=== PATIENT | male | born 1990 | race Caucasian/White ===

== ENCOUNTER → 2016-09-23 23:02 | Emergency (ER) | payer SELFPAY ==
[~2016-09-23 23:02] MED LIST: Ketorolac INJ* 60 MG/2 ML VIAL IM ONE
[2016-09-23 23:07] VITALS: BP 156/94
--- NOTE | 2016-09-24 00:23 | ED ---
Upper Extremity Pain - HPI Summary HPI Summary: 26 male presents with complaints of right hand pain that began just prior to arrival after punching campos and cabinets because he was angry. Patient states his is able to move his finger and hand however it hurts. Admits to some swelling and minor cuts on his knuckles. Denies any other injuries or pain. Has not taken any medication prior to arrival. Denies numbness and tingling. - History of Current Complaint Chief Complaint: EDExtremityUpper Stated Complaint: RT HAND INJURY Time Seen by Provider: 09/23/16 23:32 Hx Obtained From: Patient Mechanism Of Injury: Blunt Trauma - punching objects Onset/Duration: Started Minutes Ago, Traumatic, Worse Since Timing: Constant Severity Initially: Moderate Severity Currently: Moderate Pain Location: Hand - right Character: Aching, Throbbing Aggravating Factor(s): Movement Alleviating Factor(s): Rest Associated Signs & Symptoms: Positive: Swelling Related History: Dominant Hand Right - Allergies/Home Medications Allergies/Adverse Reactions: Allergies Allergy/AdvReac Type Severity Reaction Status Date / Time Levofloxacin [From Levaquin] Allergy Hives Verified 09/29/15 17:56 PMH/Surg Hx/FS Hx/Imm Hx Endocrine/Hematology History: Denies: Hx Blood Disorders, Hx Diabetes, Hx Thyroid Disease Cardiovascular History: Reports: Hx Syncope Denies: Hx Congestive Heart Failure, Hx Hypertension Respiratory History: Denies: Hx Asthma, Hx Chronic Bronchitis, Hx Chronic Obstructive Pulmonary Disease (COPD), Hx Cystic Fibrosis, Hx Lung Cancer, Hx Pleural Effusion, Hx Pneumonia, Hx Pulmonary Edema, Hx Pulmonary Embolism, Hx Seasonal Allergies, Hx Sleep Apnea Comment Only: Other Respiratory Problems/Disorders - pulmonary nodules GI History: Denies: Hx Hiatal Hernia, Hx Obstructive Bowel, Hx Ulcer History: Reports: Other Problems/Disorders - difficulty urinating this visit Denies: Hx Kidney Infection, Hx Kidney Stones, Hx Renal Disease Musculoskeletal History: Reports: Hx Back Problems - pain Sensory History: Reports: Hx Hearing Problem - tinnitus Denies: Hx Cataracts, Hx Contacts or Glasses, Hx Eye Injury, Hx Glaucoma, Hx Legally Blind, Hx Vision Problem, Hx Hearing Aid, Other Sensory Impairments Opthamlomology History: Denies: Hx Cataracts, Hx Contacts or Glasses, Hx Eye Injury, Hx Glaucoma, Hx Legally Blind, Hx Vision Problem, Other Sensory Impairments Neurological History: Reports: Hx Headaches Denies: Hx Developmental Delay, Hx Migraine, Hx Seizures, Hx Spinal Cord Injury, Other Neuro Impairments/Disorders Psychiatric History: Reports: Hx Anxiety - low level - Immunization History Date of Tetanus Vaccine: unknown Date of Influenza Vaccine: 2011 Infectious Disease History: No Infectious Disease History: Denies: Hx Clostridium Difficile, Hx Hepatitis, Hx Human Immunodeficiency Virus (HIV), Hx of Known/Suspected MRSA, Hx Shingles, Hx Tuberculosis, Traveled Outside the [place] in Last 30 Days - Family History Known Family History: Positive: None Negative: Cardiac Disease, Diabetes Family History: R & n/C - Social History Alcohol Use: Occasionally Hx Substance Use: No Substance Use Type: Reports: None Hx Tobacco Use: No Smoking Status (MU): Former Smoker Type: Cigarettes Amount Used/How Often: ocassional smoker- when drinking Have You Smoked in the Last Year: Yes Review of Systems Constitutional: Negative Cardiovascular: Negative Respiratory: Negative Gastrointestinal: Negative Positive: Arthralgia, Myalgia, Decreased ROM, Edema - right hand Skin: Negative Neurological: Negative All Other Systems Reviewed And Are Negative: Yes Physical Exam Triage Information Reviewed: Yes Vital Signs On Initial Exam: Initial Vitals Temp Pulse Resp BP Pulse Ox 98.2 F 104 20 156/94 99 09/23/16 23:04 09/23/16 23:04 09/23/16 23:04 09/23/16 23:04 09/23/16 23:04 tachycardia and elevate BP noted. Recommend follow up with PCP. patient was however frustrated just prior to arrival. Vital Signs Reviewed: Yes Appearance: Positive: Well-Appearing, No Pain Distress, Well-Nourished Skin: Positive: Warm, Skin Color Reflects Adequate Perfusion, Dry, Other - 2 minorskin avulsions/scrapes on PIP joints 1 and 2nd digits. Negative: Cold, Cyanosis @, Erythema @ Head/Face: Positive: Normal Head/Face Inspection Eyes: Positive: Normal, Conjunctiva Clear ENT: Positive: Normal ENT inspection, Hearing grossly normal Neck: Positive: Supple, Nontender, No Lymphadenopathy Respiratory/Lung Sounds: Positive: Clear to Auscultation, Breath Sounds Present. Negative: Rales, Rhonchi, Wheezes Cardiovascular: Positive: Normal, RRR, Pulses are Symmetrical in both Upper and Lower Extremities - 2+ radial b/l. Negative: Murmur, Rub Abdomen Description: Positive: Nontender, Soft Bowel Sounds: Positive: Present Musculoskeletal: Positive: Normal, Strength/ROM Intact - strength of right hand diminshed 3/5 due to pain/injury, Pain @ - with movement of right hand and fingers but able, Other - no ecchymosis, edema, crepitus, step-off or obvious deformity noted. 2 skin avulsions, minimal on knuckles noted above. Negative: Limited @, Interruption @, Edema Left, Edema Right Neurological: Positive: Normal, Sensory/Motor Intact - sensation normal and intact, Alert, Oriented to Person Place, Time, CN Intact II-III, Reflexes Intact , Normal Gait Psychiatric: Positive: Normal Diagnostics - Vital Signs Vital Signs Temp Pulse Resp BP Pulse Ox 09/23/16 23:55 98.2 F 104 20 156/94 99 09/23/16 23:04 98.2 F 104 20 156/94 99 - Laboratory Lab Statement: Any lab studies that have been ordered have been reviewed, and results considered in the medical decision making process. - Radiology right hand Xray Interpretation: No Acute Changes Radiology Interpretation Completed By: ED Physician - Dr Shen Course/Dx - Course Course Of Treatment: x-ray of right hand obtained and negative for fracture, given toradol for pain and inflammation. given brace for support. Follow up with PCP. Aware of worsening signs and sympoms. Continue pain management, ice and rest. - Diagnoses Differential Diagnosis/HQI/PQRI: Positive: Contusion, Fracture (Closed), Hematoma, Strain, Sprain Provider Diagnoses: Contusion of right hand, Sprain of right hand Discharge - Discharge Plan Condition: Stable Disposition: HOME Patient Education Materials: Hand Sprain (ED), Contusion in Adults (ED) Referrals: Duke Fernandez MD [Primary Care Provider] - Additional Instructions: Take NSAIDs to help with pain and inflammation such as Advil or Aleve. Rest and ice your hand. Wear brace as needed for support. Follow up with PCP. If symptoms worsen or do not improve please return or seek medical attention promptly.
--- NOTE | 2016-09-24 11:49 | RAD ---
HISTORY: Right hand pain, trauma COMPARISONS: January 25, 2006 VIEWS: 4, Frontal, lateral, and oblique views of the right hand FINDINGS: BONE DENSITY: Normal. BONES: There is no displaced fracture. JOINTS: There is no arthropathy. ALIGNMENT: There is no dislocation. SOFT TISSUES: Unremarkable. OTHER FINDINGS: None. IMPRESSION: NO ACUTE OSSEOUS INJURY. IF SYMPTOMS PERSIST, RECOMMEND REPEAT IMAGING.
== END | disposition home or self-care (01) ==
LOC: ED 23:02
DX: S60.221A Contusion of right hand, initial encounter (principal); S63.91XA Sprain of unspecified part of right wrist and hand, initial encounter; M79.641 Pain in right hand; Z87.891 Personal history of nicotine dependence; W22.01XA Walked into wall, initial encounter; Y93.9 Activity, unspecified; Y92.9 Unspecified place or not applicable
CPT/HCPCS: 96372; 99282; J1885

== ENCOUNTER 2017-01-23 10:31 | Emergency (ER) | payer SELFPAY ==
[2017-01-23 10:40] VITALS: BP 121/63
[2017-01-23] MEDS ORDERED: Tetan/Diph/Pertus SYR(Tdap)* 0.5 ML SYR(BOOSTRIX) use SYR IM ONE (11:37)
--- NOTE | 2017-01-23 12:13 | UC ---
Laceration HPI - HPI Summary HPI Summary: Patient presents with laceration of the right middle finger while at work just prior to arrival. He reports a small "L" shape cut on the end of his finger. Bleeding is controlled, he report full rom and no decreased sensation to touch. He states he does not sense foreign body in the wound. He was removing glass from a broken window when the injury occurred. - History Of Current Complaint Chief Complaint: UCLaceration Stated Complaint: FINGER LAC Time Seen by Provider: 01/23/17 11:34 Hx Obtained From: Patient Laceration Location: Finger Mechanism Of Injury: Sharp Trauma Pain Intensity: 2 Pain Scale Used: 0-10 Numeric Aggravating Factors: Other: - touch - Allergies/Home Medications Allergies/Adverse Reactions: Allergies Allergy/AdvReac Type Severity Reaction Status Date / Time Levofloxacin [From Levaquin] Allergy Hives Verified 01/23/17 10:36 Home Medications: Home Medications NK [No Home Medications Reported] 01/23/17 [History Confirmed 01/23/17] PMH/Surg Hx/FS Hx/Imm Hx Previously Healthy: Yes - Surgical History Surgical History: None - Family History Known Family History: Positive: None Negative: Cardiac Disease, Diabetes Family History: R & n/C - Social History Occupation: Employed Full-time Lives: Alone Alcohol Use: Occasionally Substance Use Type: None Smoking Status (MU): Light Every Day Tobacco Smoker Type: Cigarettes Amount Used/How Often: ocassional smoker- when drinking Have You Smoked in the Last Year: Yes Household Exposure Type: Cigarettes - Immunization History Most Recent Influenza Vaccination: 2011 Most Recent Tetanus Shot: 2009 Most Recent Pneumonia Vaccination: 0 Review of Systems Constitutional: Negative Skin: Other - finger cut All Other Systems Reviewed And Are Negative: Yes Physical Exam Triage Information Reviewed: Yes Appearance: Well-Appearing Vital Signs: Initial Vital Signs Temp 98 F 01/23/17 10:37 Pulse 63 01/23/17 10:37 Resp 16 01/23/17 10:37 BP 121/63 01/23/17 10:37 Pulse Ox 100 01/23/17 10:37 Vital Signs Reviewed: Yes Eye Exam: Normal ENT Exam: Normal Neck exam: Normal Respiratory Exam: Normal Cardiovascular Exam: Normal Abdominal Exam: Normal Skin: Positive: Other - superficial laceration of the tip of the right index finger. measue 0.5 cm in total and is in the shape of a "L". neuro-vasc intact. rom intact. Laceration Repair - Laceration Repair 1 Description: Linear - laceration was glued with adhesive. Laceration Course/Dx - Course/Dx Course Of Treatment: Patient presents with superficial laceration of the right middle finger, which was closed with adhesive. tetanus updated. splint provided. return to work tomorrow. - Differential Dx - Laceration/Wound Differental Diagnoses: Laceration Provider Diagnoses: laceration. adhesive repair. tetanus updated Discharge - Discharge Plan Condition: Stable Disposition: HOME Patient Education Materials: Diphtheria/Acellular Pertussis/Tetanus Vaccine ( By injection), Finger Laceration (ED), Skin Adhesive Care (ED) Forms: *Work Release Referrals: Duke Fernandez MD [Primary Care Provider] -
== END 2017-01-23 12:00 | disposition home or self-care (01) ==
LOC: UCEAST 10:31
DX: S61.212A Laceration without foreign body of right middle finger without damage to nail, initial encounter (principal); W25.XXXA Contact with sharp glass, initial encounter; Y92.9 Unspecified place or not applicable; Z88.1 Allergy status to other antibiotic agents; F17.210 Nicotine dependence, cigarettes, uncomplicated
CPT/HCPCS: 12001; 90471; 90715; 99212; G0463

== ENCOUNTER 2017-02-04 18:09 | Emergency (ER) | payer SELFPAY ==
[2017-02-04 18:28] VITALS: BP 112/70
--- NOTE | 2017-02-04 18:35 | UC ---
Hand/Wrist HPI - HPI Summary HPI Summary: ring finger left hand tip of finger red tender and swollen, patient bits his nails and has had similar in the past - History Of Current Complaint Chief Complaint: UCUpperExtremity Stated Complaint: L FINGER SWOLLEN Time Seen by Provider: 02/04/17 18:30 Hx Obtained From: Patient ?: No Onset/Duration: Gradual Onset, Lasting Days, Still Present Severity Initially: Mild Severity Currently: Moderate Pain Intensity: 6 Pain Scale Used: 0-10 Numeric Character Of Pain: Aching, Throbbing Alleviating Factor(s): Nothing Associated Signs And Symptoms: Positive: Swelling, Redness Related History: Dominant Hand Right - Allergies/Home Medications Allergies/Adverse Reactions: Allergies Allergy/AdvReac Type Severity Reaction Status Date / Time Levofloxacin [From Levaquin] Allergy Hives Verified 02/04/17 18:15 Home Medications: Home Medications Ibuprofen [Ibuprofen 200 MG] 200 mg PO 02/04/17 [History] PMH/Surg Hx/FS Hx/Imm Hx Previously Healthy: Yes - Surgical History Surgical History: None - Family History Known Family History: Positive: None Negative: Cardiac Disease, Diabetes - Social History Occupation: Employed Full-time Lives: With Family Alcohol Use: Occasionally Substance Use Type: None Smoking Status (MU): Light Every Day Tobacco Smoker Type: Cigarettes Amount Used/How Often: 1/2 pack/ day Have You Smoked in the Last Year: Yes Household Exposure Type: Cigarettes Cessation Counseling: Patient Advised to Stop - Immunization History Most Recent Influenza Vaccination: 2011 Most Recent Tetanus Shot: 2009 Most Recent Pneumonia Vaccination: 0 Review of Systems Constitutional: Negative Skin: Other - left 4th finger red, swelling and tender Eyes: Negative ENT: Negative Respiratory: Negative Cardiovascular: Negative Gastrointestinal: Negative Genitourinary: Negative Motor: Negative Neurovascular: Negative Musculoskeletal: Negative Neurological: Negative Psychological: Negative Is Patient Immunocompromised?: No All Other Systems Reviewed And Are Negative: Yes Physical Exam Triage Information Reviewed: Yes Appearance: Well-Appearing, No Pain Distress, Well-Nourished Vital Signs: Initial Vital Signs Temp 98.2 F 02/04/17 18:16 Pulse 71 02/04/17 18:16 Resp 18 02/04/17 18:16 Pulse Ox 97 02/04/17 18:16 Vital Signs Reviewed: Yes Eye Exam: Normal Eyes: Positive: Conjunctiva Clear ENT Exam: Normal ENT: Positive: Normal ENT inspection, Hearing grossly normal. Negative: Nasal congestion, Nasal drainage, Trismus, Muffled/hoarse voice Dental Exam: Normal Neck exam: Normal Neck: Positive: Supple, Nontender, No Lymphadenopathy Respiratory Exam: Normal Respiratory: Positive: Chest non-tender, No respiratory distress, No accessory muscle use Cardiovascular Exam: Normal Cardiovascular: Positive: RRR, Pulses Normal, Brisk Capillary Refill Musculoskeletal Exam: Normal Musculoskeletal: Positive: Strength Intact, ROM Intact, Edema @ - tip of left 4th finger Neurological Exam: Normal Neurological: Positive: Alert Psychological Exam: Normal Skin Exam: Normal - nail of left 4th finger has pain reddness and swelling- tender to touch Skin: Positive: Other Hand/Wrist Course/Dx - Course Course Of Treatment: warm soak , ibuprfen, bactim dx follow with pcp this week - Differential Dx/Diagnosis Differential Diagnosis/HQI/PQRI: Infection, Paronychia Provider Diagnoses: lefth 4th finger paronychia Discharge - Discharge Plan Condition: Stable Disposition: HOME Prescriptions: Ibuprofen TAB* [Motrin TAB* 600 MG] 600 mg PO Q6H PRN #30 tab PRN Reason: pain Sulfamethox/Trimethoprim DS* [Bactrim DS 800/160 TAB*] 1 tab PO BID #19 tab Patient Education Materials: Paronychia (ED), Warm Compress or Soak (ED) Referrals: Duke Fernandez MD [Primary Care Provider] - If Needed
[2017-02-04] MEDS ORDERED: Sulfamethox/Trimethoprim DS 800/160* TAB PO ONE (18:43)
[2017-02-04] MEDS ORDERED: Ibuprofen TAB* 600 MG PO ONE (18:43)
== END 2017-02-04 18:50 | disposition home or self-care (01) ==
LOC: UCEAST 18:09
DX: L03.012 Cellulitis of left finger (principal); Z88.8 Allergy status to other drugs, medicaments and biological substances; F17.210 Nicotine dependence, cigarettes, uncomplicated
CPT/HCPCS: 99212; A9270-GY; G0463

== ENCOUNTER 2017-02-09 13:34 | Emergency (ER) | payer SELFPAY ==
[2017-02-09] MEDS ORDERED: Lidocaine 2% PF * 5 ML VIAL IV ONE (15:43)
[2017-02-09] MEDS ORDERED: Lidocaine 2% PF * 5 ML VIAL INJ ONE (15:45)
--- NOTE | 2017-02-09 16:04 | UC ---
Skin Complaint HPI - HPI Summary HPI Summary: Patient presents with complaints of left ring finger with infection around the nail, onset six days. He was seen and place on Bactrim DS one tablet twice daily , and the day after he started the ABX his finger started to puss up around the nail. He since reports that the swelling, pain, redness and puss have been getting worse each day. He also reports pain with flexion and extension of the finger, and the tip of the finger is now numb. He states he had a finger infection like this before on the other hand. - History of Current Complaint Chief Complaint: UCUpperExtremity Time Seen by Provider: 02/09/17 15:29 Stated Complaint: RED SWOLLEN FINGER TIP Hx Obtained From: Patient Onset/Duration: Gradual Onset, Lasting Days, Still Present Skin Exposure Onset/Duration: Days Ago Timing: Constant Onset Severity: Moderate Current Severity: Severe Location: Discrete, Hand (Left) - distal ring finger Character: Swelling, Pain, Redness, Painful Aggravating Factor(s): Touch, Other - bending. flexion/extension Alleviating Factor(s): Nothing Associated Signs & Symptoms: Positive: Tenderness, Red Streaks, Joint Swelling Similar Episode/Dx as: paronchyia - Allergy/Home Medications Allergies/Adverse Reactions: Allergies Allergy/AdvReac Type Severity Reaction Status Date / Time Levofloxacin [From Levaquin] Allergy Hives Verified 02/09/17 14:43 Review of Systems Constitutional: Negative Skin: Other - left ring finger with infection Eyes: Negative ENT: Negative Respiratory: Negative Cardiovascular: Negative Gastrointestinal: Negative Genitourinary: Negative Motor: Negative Neurovascular: Negative Musculoskeletal: Negative Neurological: Negative Psychological: Negative All Other Systems Reviewed And Are Negative: Yes PMH/Surg Hx/FS Hx/Imm Hx Previously Healthy: Yes - Surgical History Surgical History: None - Family History Known Family History: Positive: None Negative: Cardiac Disease, Diabetes Family History: R & n/C - Social History Occupation: Employed Full-time Lives: Alone Alcohol Use: Occasionally Substance Use Type: None Smoking Status (MU): Light Every Day Tobacco Smoker Type: Cigarettes Amount Used/How Often: 1/2 pack/ day Have You Smoked in the Last Year: Yes Household Exposure Type: Cigarettes - Immunization History Most Recent Influenza Vaccination: 2011 Most Recent Tetanus Shot: 2009 Most Recent Pneumonia Vaccination: 0 Physical Exam Triage Information Reviewed: Yes Appearance: Well-Appearing Vital Signs: Initial Vital Signs Temp 98.2 F 02/09/17 14:44 Pulse 62 02/09/17 14:44 Resp 16 02/09/17 14:44 BP 107/67 02/09/17 14:44 Pulse Ox 100 02/09/17 14:44 Vital Signs Reviewed: Yes Eye Exam: Normal ENT Exam: Normal Neck exam: Normal Respiratory Exam: Normal Cardiovascular Exam: Normal Musculoskeletal Exam: Other - left ring finger inspection; erythma, and soft tissue swellling noted distally extends above the dip joint space. mildly warm to touch, and tenderness on palpation. ROM decreased with flexion and extension of 20 degrees until pain is experienced. Vasc; strong radial and ulnar pulses, capillary refill less that 3 seconds. neuro;without deficits. Skin Exam: Normal Course/Dx - Course Course Of Treatment: Patient presents with paronchyia of the left index finger. With concent and after digital block I+D of the paronchyia was performed. Culture obtained and pending. DR. Marley was called and he can see the patient tomorrow. He was placed on Kefelx 500 mg po qid x 10 days. Pain addressed. Discharged home in stable condition. - Differential Diagnoses - Skin Complaint Differential Diagnoses: Other - paryonchia - Diagnoses Provider Diagnoses: paronchyia Discharge - Discharge Plan Condition: Stable Disposition: HOME Prescriptions: Cephalexin CAP* [Keflex CAP*] 500 mg PO QID #40 cap HYDROcodone/ACETAMIN 5-325 MG* [[place] 5-325 TAB*] 1 tab PO Q8H PRN #6 tab MDD 3 PRN Reason: finger pain Patient Education Materials: Paronychia (ED) Referrals: Duke Fernandez MD [Primary Care Provider] - Humberto Lamb MD [Medical Doctor] - Additional Instructions: I spoke with the doctor and he will see you tomorrow in his office, you will need to call and make your appointment in the morning.
[2017-02-09 16:33] VITALS: BP 151/84
--- NOTE | 2017-02-09 16:49 | RAD ---
Indication: Infection LEFT fourth finger. Comparison: No relevant prior exams available on the [facility] PACS. Technique: 3 views LEFT fourth finger Report: Significant fusiform soft tissue swelling at the level of the distal phalanx. No conspicuous foreign body or subcutaneous emphysema. Normal articular alignment. Negative for fracture, periosteal reaction, osteolysis, or osteosclerosis. IMPRESSION: Distal soft tissue swelling. No radiographic stigmata for osteomyelitis.
== END 2017-02-09 16:30 | disposition home or self-care (01) ==
LOC: UCEAST 13:34
DX: L03.011 Cellulitis of right finger (principal); F17.210 Nicotine dependence, cigarettes, uncomplicated; Z88.1 Allergy status to other antibiotic agents
CPT/HCPCS: 73140; 87070; 87077; 87186; 87205; 87640; 87641; 99212; G0463

== ENCOUNTER 2018-07-19 19:52 | Emergency (ER) | payer SELFPAY ==
[2018-07-19 20:35] VITALS: BP 124/76
[2018-07-19] MEDS ORDERED: Famotidine TAB* 20 MG PO ONE (20:46)
--- NOTE | 2018-07-19 20:46 | UC ---
FLU HPI - HPI Summary HPI Summary: 28 y/o male presents to the urgent care c/o fever, sore throat, RENO, body aches, dry cough since yesterday. Pt reports this morning symptoms worsen w/ fever of 102f. He took Tylenol cold and flu and tem decrease. then he developed fever again. Last dose taken was around 1845pm this afternoon, He feels weak. Pt had the influenza vaccine this season. Pt denies SOB, chest pain, dizziness, abdominal pain, N/V/D. - History of Current Complaint Chief Complaint: UCRespiratory Stated Complaint: FEVER Time Seen by Provider: 07/19/18 20:29 Hx Obtained From: Patient Onset/Duration: Gradual Onset, Lasting Days - 1 day, Still Present, Worse Since - today Severity Currently: Mild Severity Initially: Moderate Pain Intensity: 8 Pain Scale Used: 0-10 Numeric Associated Signs & Symptoms: Positive: Fever, T Max - 102F, Myalgia, Cough - dry , Sore Throat, Nasal Congestion - clear, Headache - Risk Factors Influenza Risk Factors: Negative - Allergy/Home Medications Allergies/Adverse Reactions: Allergies Allergy/AdvReac Type Severity Reaction Status Date / Time levofloxacin [From Levaquin] Allergy Hives/Diff. Verified 07/19/18 20:35 Breathing/I tching Home Medications: Home Medications Phenylephrine/Dm/Acetaminop/GG [Tylenol Cold-Flu Severe Caplet] 1 each PO Q6H [History Confirmed 07/19/18] PMH/Surg Hx/FS Hx/Imm Hx Previously Healthy: Yes - Pt denies PMHX - Surgical History Surgical History: None - Family History Known Family History: Positive: None Negative: Cardiac Disease, Diabetes Family History: R & n/C - Social History Occupation: Employed Full-time Lives: With Family Alcohol Use: Occasionally Substance Use Type: None Smoking Status (MU): Light Every Day Tobacco Smoker Type: Cigarettes Amount Used/How Often: 1/2 pack/ day Have You Smoked in the Last Year: Yes Household Exposure Type: Cigarettes - Immunization History Most Recent Influenza Vaccination: 2011 Most Recent Tetanus Shot: 2009 Most Recent Pneumonia Vaccination: 0 Review of Systems All Other Systems Reviewed And Are Negative: Yes Constitutional: Positive: Fever, Chills, Fatigue, Other - body aches Skin: Positive: Negative Eyes: Positive: Negative ENT: Positive: Sore Throat, Nasal Discharge - clear, Sinus Congestion Respiratory: Positive: Cough - dry Cardiovascular: Positive: Negative Gastrointestinal: Positive: Negative Genitourinary: Positive: Negative Motor: Positive: Negative Neurovascular: Positive: Negative Musculoskeletal: Positive: Myalgia Neurological: Positive: Headache Psychological: Positive: Negative Is Patient Immunocompromised?: No Physical Exam - Summary Physical Exam Summary: VITAL SIGNS: Reviewed. GENERAL: Patient is a well developed and nourished male who is sitting comfortable in the examining table. Patient is not in any acute respiratory distress. HEAD AND FACE: No signs of trauma. No ecchymosis, hematomas or skull depressions. No sinus tenderness. EYES: PERRLA, EOMI x 2, No injected conjunctiva, no nystagmus. No photophobia. EARS: Hearing grossly intact. Ear canals and tympanic membranes are within normal limits. Nose: edematous and erythematous nasal mucosa w/ clear nasal discharge. MOUTH: Positive no erythema, no tonsillar enlargement. Uvula in midline. NECK: Supple, trachea is midline, Positive anterior cervical lymphadenopathy, no JVD, no carotid bruit, no c-spine tenderness, neck with full ROM. No meningeal signs, no Kernig's or brudzinskis signs. CHEST: Symmetric, no tenderness at palpation LUNGS: Clear to auscultation bilaterally. No wheezing or crackles. CVS: Regular rate and rhythm, S1 and S2 present, no murmurs or gallops appreciated. ABDOMEN: Soft, non-tender. No signs of distention. No rebound no guarding, and no masses palpated. Bowel sounds are normal. EXTREMITIES: FROM in all major joints, no edema, no cyanosis or clubbing. NEURO: Alert and oriented x 3. No acute neurological deficits. Speech is normal and follows commands. SKIN: Dry and warm Triage Information Reviewed: Yes Vital Signs: Initial Vital Signs Temp 99.3 F 07/19/18 20:30 Pulse 101 07/19/18 20:30 Resp 18 07/19/18 20:30 BP 124/76 07/19/18 20:30 Pulse Ox 97 07/19/18 20:30 Flu Course/Dx - Course Course Of Treatment: 28 y/o male presents to the urgent care c/o fever, sore throat, RENO, body aches, dry cough since yesterday. Pt reports this morning symptoms worsen w/ fever of 102f. He took Tylenol cold and flu and tem decrease. then he developed fever again. Last dose taken was around 1845pm this afternoon, He feels weak. Pt had the influenza vaccine this season. Pt denies SOB, chest pain, dizziness, abdominal pain, N/V/D. Hx obtained. Pt w/pharyngitis on examination. Rapid strep ordered, result: negative.Influenza A&B ordered: result: negative .Pt requested Tamiflu since he has been exposed to the flu. Pt Rx Tamiflu and ibuprofen PO to alleviates symptoms. Advised on hand washing and wear a mask to avoid spreading. Pt advised to rest, increase fluid intake, eat well and avoid strenuous exercise. Pt advised If symptoms do not improve or worsen advised to return to the urgent care or f/u with PCP for further evaluation and treatment. D/C instructions explained. Pt understood and agreed. Pt left the clinic hemodynamically stable and ambulating. - Differential Dx/Diagnosis Differential Diagnosis/HQI/PQRI: Bronchitis, Influenza, Pneumonia, Upper Respiratory Infection Provider Diagnosis: Viral syndrome, GERD (gastroesophageal reflux disease) Discharge - Sign-Out/Discharge Documenting (check all that apply): Patient Departure - d/c home All imaging exams completed and their final reports reviewed: No Studies - Discharge Plan Condition: Stable Disposition: HOME Prescriptions: Ibuprofen TAB* [Motrin TAB* 600 MG] 600 mg PO Q6H PRN #30 tab PRN Reason: Fever Omeprazole CAP (NF) [Prilosec CAP* 20 MG] 20 mg PO DAILY #30 cap. Oseltamivir CAP* [Tamiflu CAP*] 75 mg PO BID #9 cap Patient Education Materials: Gastroesophageal Reflux Disease (ED), Viral Syndrome (ED) Forms: *Work Release Referrals: Duke Fernandez MD [Primary Care Provider] - 2 Days Additional Instructions: 1- Please take the full course of the antiviral to avoid resistance. Encourage hand washing and wear a mask to avoid spreading. 2-Please continue taking Tylenol or Ibuprofen alternating PO q6-8hrs prn as instructed after meals to alleviate fever, and sore throat. Increase fluid intake, eat well, rest and avoid strenuous exercise. 3- If fever is not controlled and you develop abdominal pain, nausea or vomiting please go immediately to the ER for further management. 4-If symptoms do not improve please f/u with your PCP in 3 days for further evaluation and treatment. - Billing Disposition and Condition Condition: STABLE Disposition: Home
[2018-07-19] MEDS ORDERED: Ibuprofen TAB* 400 MG PO ONE (20:47)
[2018-07-19 21:17] LABS: Influenza A Molecular NEGATIVE (Negative); Influenza B Molecular NEGATIVE (Negative)
[2018-07-19] MEDS ORDERED: Oseltamivir CAP* 75 MG CAP PO ONE (21:24)
== END 2018-07-19 21:55 | disposition home or self-care (01) ==
LOC: UCEAST 19:52
DX: K21.9 Gastro-esophageal reflux disease without esophagitis (principal); B34.9 Viral infection, unspecified; F17.210 Nicotine dependence, cigarettes, uncomplicated; J34.89 Other specified disorders of nose and nasal sinuses; M79.10 Myalgia, unspecified site; R59.0 Localized enlarged lymph nodes; Z88.1 Allergy status to other antibiotic agents
CPT/HCPCS: 87651; 99212; A9270-GY; G0463

== ENCOUNTER 2019-01-06 21:05 | Emergency (ER) | payer SELFPAY ==
[2019-01-06 21:21] VITALS: BP 124/74
[2019-01-06] MEDS ORDERED: diPHENhydraMINE PO* 25 MG PO ONE (21:53)
--- NOTE | 2019-01-22 21:08 | UC ---
Skin Complaint HPI - HPI Summary HPI Summary: 28 year old male with no PMH presents with redness, swelling pain to left ankle after bee sting yesterday. Denies SOB, throat swelling/ dificulty swallowing. Mild nausea, no vomiting. - History of Current Complaint Chief Complaint: UCLowerExtremity Time Seen by Provider: 01/06/19 21:39 Stated Complaint: UPSET STOMACH, BEE STING YESTERDAY Hx Obtained From: Patient Onset/Duration: Sudden Onset, Lasting Days Timing: Constant Current Severity: None Pain Intensity: 0 Pain Scale Used: 0-10 Numeric Location: Discrete - left ankle - Allergy/Home Medications Allergies/Adverse Reactions: Allergies Allergy/AdvReac Type Severity Reaction Status Date / Time levofloxacin [From Levaquin] Allergy Hives/Diff. Verified 01/06/19 21:21 Breathing/I tching Home Medications: Home Medications NK [No Home Medications Reported] 01/06/19 [History Confirmed 01/06/19] PMH/Surg Hx/FS Hx/Imm Hx Previously Healthy: Yes - Surgical History Surgical History: None - Family History Known Family History: Positive: None Negative: Cardiac Disease, Diabetes Family History: R & n/C - Social History Alcohol Use: Occasionally Substance Use Type: None Smoking Status (MU): Light Every Day Tobacco Smoker Type: Cigarettes Amount Used/How Often: 1/2 pack/ day Have You Smoked in the Last Year: Yes Household Exposure Type: Cigarettes - Immunization History Most Recent Influenza Vaccination: 2011 Most Recent Tetanus Shot: 2009 Most Recent Pneumonia Vaccination: 0 Review of Systems All Other Systems Reviewed And Are Negative: Yes Skin: Positive: Rash Is Patient Immunocompromised?: No Physical Exam Appearance: Well-Appearing, No Pain Distress, Well-Nourished Vital Signs: Initial Vital Signs Temp 99 F 01/06/19 21:16 Pulse 86 01/06/19 21:16 Resp 16 01/06/19 21:16 BP 124/74 01/06/19 21:16 Pulse Ox 100 01/06/19 21:16 Eyes: Positive: Conjunctiva Clear ENT: Positive: Hearing grossly normal Neck: Positive: 1 Musculoskeletal: Positive: Strength Intact, ROM Intact, Edema @ - mild left lower ankle Neurological Exam: Normal Neurological: Positive: Other: - SITLT left LE Psychological Exam: Normal Skin: Positive: Rashes, Other - erythema over left ankle, mild edema without drainage, no ecchymosis, non-tender. Course/Dx - Course Course Of Treatment: Allergic reaction to sting - Benadryl as needed to help decrease swelling, pain, redness - Continue to monitor- if increased pain, swelling, you may be developing an infection. - Tylenol/ Motrin as needed for pain - Increase hydration - Diagnoses Provider Diagnosis: Allergic reaction to insect sting Discharge ED - Sign-Out/Discharge Documenting (check all that apply): Patient Departure All imaging exams completed and their final reports reviewed: No Studies - Discharge Plan Condition: Good Disposition: HOME Patient Education Materials: Urticaria (ED), Acute Nausea and Vomiting (ED) Forms: *Work Release Referrals: Duke Fernandez MD [Primary Care Provider] - Additional Instructions: - Benadryl as needed to help decrease swelling, pain, redness - Continue to monitor- if increased pain, swelling, you may be developing an infection. - Tylenol/ Motrin as needed for pain - Increase hydration - Billing Disposition and Condition Condition: GOOD Disposition: Home
== END 2019-01-06 22:09 | disposition home or self-care (01) ==
LOC: UCEAST 21:05
DX: Z53.8 Procedure and treatment not carried out for other reasons (principal)
CPT/HCPCS: 99211; A9270-GY; G0463

== ENCOUNTER 2019-03-08 16:33 | Emergency (ER) | payer OTHER ==
[2019-03-08 16:46] VITALS: BP 117/73
--- NOTE | 2019-03-08 17:19 | UC ---
Hand/Wrist HPI - HPI Summary HPI Summary: Mr. Asher presented with a painful right thumb for 4-5 days. He has had paronychia before which have been drained. - History Of Current Complaint Chief Complaint: UCSkin Stated Complaint: POSS INFECTION IN THUMB Hx Obtained From: Patient Onset/Duration: Gradual Onset Severity Initially: Mild Severity Currently: Mild Pain Intensity: 4 Character Of Pain: Sharp Aggravating Factor(s): Movement Alleviating Factor(s): Other - He is to warm soak yesterday which helped a lot. Associated Signs And Symptoms: Positive: Swelling, Redness - Allergies/Home Medications Allergies/Adverse Reactions: Allergies Allergy/AdvReac Type Severity Reaction Status Date / Time levofloxacin [From Levaquin] Allergy Hives/Diff. Verified 03/08/19 16:47 Breathing/I tching PMH/Surg Hx/FS Hx/Imm Hx Previously Healthy: Yes - Surgical History Surgical History: None - Family History Known Family History: Positive: None Negative: Cardiac Disease, Diabetes Family History: R & n/C - Social History Alcohol Use: Weekly Substance Use Type: None Smoking Status (MU): Light Every Day Tobacco Smoker Type: Cigarettes Amount Used/How Often: 1/2 pack/ day Have You Smoked in the Last Year: Yes Household Exposure Type: Cigarettes - Immunization History Most Recent Influenza Vaccination: 2011 Most Recent Tetanus Shot: 2009 Most Recent Pneumonia Vaccination: 0 Review of Systems All Other Systems Reviewed And Are Negative: Yes Physical Exam - Summary Physical Exam Summary: He is nontoxic in appearance with stable vitals Triage Information Reviewed: Yes Appearance: Well-Appearing Vital Signs: Initial Vital Signs Temp 99.6 F 03/08/19 16:43 Pulse 75 03/08/19 16:43 Resp 16 03/08/19 16:43 BP 117/73 03/08/19 16:43 Pulse Ox 98 03/08/19 16:43 Vital Signs Reviewed: Yes Musculoskeletal Exam: Other - He has very mild paronychia on his right thumb. Neurological Exam: Normal Hand/Wrist Course/Dx - Course Course Of Treatment: At this point this paronychia is mild and opening and is not currently productive. I recommended warm soaks and given a prescription for Bactroban. - Differential Dx/Diagnosis Provider Diagnosis: Paronychia Discharge ED - Sign-Out/Discharge Documenting (check all that apply): Patient Departure All imaging exams completed and their final reports reviewed: No Studies - Discharge Plan Condition: Stable Disposition: HOME Patient Education Materials: Rubin (ED) Referrals: Duke Fernandez MD [Primary Care Provider] - - Billing Disposition and Condition Condition: STABLE Disposition: Home
== END 2019-03-08 17:37 | disposition home or self-care (01) ==
LOC: UCEAST 16:33
DX: L03.011 Cellulitis of right finger (principal); F17.210 Nicotine dependence, cigarettes, uncomplicated; Z88.1 Allergy status to other antibiotic agents
CPT/HCPCS: 99212; G0463

== ENCOUNTER 2019-03-10 11:51 | Emergency (ER) | payer OTHER ==
[2019-03-10] MEDS ORDERED: Lidocaine 1% MPF* 2 ML VIAL INJ ONE (12:38)
[2019-03-10] MEDS ORDERED: Lidocaine 1% MPF ** 5 ML VIAL ONE (12:39)
--- NOTE | 2019-03-10 12:52 | ED ---
Skin Complaint - HPI Summary HPI Summary: The pt is a 29 yr old male presenting to [facility] c/o paronychia beginning 1 week [employer]. He states that he went to urgent care before this visit and was treated with an ointment for a paronychia on his left thumb and was told to soak it. He rates his current pain intensity a 4/10. He also reports some worsening swelling of his left thumb but denies fever. He is a smoker and drinks occasionally. - History of Current Complaint Chief Complaint: EDExtremityUpper Time Seen by Provider: 03/10/19 12:29 Stated Complaint: LT THUMB INFECTION PER PT Hx Obtained From: Patient Onset/Duration: Started Days Ago, Still Present Skin Exposure Onset/Duration: Days Ago Timing: Constant, Lasting Days Onset Severity: Moderate Current Severity: Moderate Pain Intensity: 4 Pain Scale Used: 0-10 Numeric Skin Location: Hand - left thumb Aggravating Symptom(s): Nothing Alleviating Symptom(s): Nothing Associated Signs & Symptoms: Negative - fever, Joint Swelling - left thumb - Additional Pertinent History Primary Care Physician: CRISELDA - Allergy/Home Medications Allergies/Adverse Reactions: Allergies Allergy/AdvReac Type Severity Reaction Status Date / Time levofloxacin [From Levaquin] Allergy Hives/Diff. Verified 03/10/19 11:57 Breathing/I tching PMH/Surg Hx/FS Hx/Imm Hx Endocrine/Hematology History: Denies: Hx Blood Disorders, Hx Diabetes, Hx Thyroid Disease Cardiovascular History: Reports: Hx Syncope Denies: Hx Congestive Heart Failure, Hx Hypertension Respiratory History: Denies: Hx Asthma, Hx Chronic Bronchitis, Hx Chronic Obstructive Pulmonary Disease (COPD), Hx Cystic Fibrosis, Hx Lung Cancer, Hx Pleural Effusion, Hx Pneumonia, Hx Pulmonary Edema, Hx Pulmonary Embolism, Hx Seasonal Allergies, Hx Sleep Apnea Comment Only: Other Respiratory Problems/Disorders - pulmonary nodules GI History: Denies: Hx Hiatal Hernia, Hx Obstructive Bowel, Hx Ulcer History: Reports: Other Problems/Disorders - difficulty urinating this visit Denies: Hx Kidney Infection, Hx Kidney Stones, Hx Renal Disease Musculoskeletal History: Reports: Hx Back Problems - pain Sensory History: Reports: Hx Hearing Problem - tinnitus Denies: Hx Cataracts, Hx Contacts or Glasses, Hx Eye Injury, Hx Glaucoma, Hx Legally Blind, Hx Vision Problem, Hx Hearing Aid, Other Sensory Impairments Opthamlomology History: Denies: Hx Cataracts, Hx Contacts or Glasses, Hx Eye Injury, Hx Glaucoma, Hx Legally Blind, Hx Vision Problem, Other Sensory Impairments Neurological History: Reports: Hx Headaches Denies: Hx Developmental Delay, Hx Migraine, Hx Seizures, Hx Spinal Cord Injury, Other Neuro Impairments/Disorders Psychiatric History: Reports: Hx Anxiety - low level - Surgical History Surgical History: None Surgery Procedure, Year, and Place: none - Immunization History Date of Tetanus Vaccine: unknown Date of Influenza Vaccine: 2011 Infectious Disease History: No Infectious Disease History: Denies: Hx Clostridium Difficile, Hx Hepatitis, Hx Human Immunodeficiency Virus (HIV), Hx of Known/Suspected MRSA, Hx Shingles, Hx Tuberculosis, Hx Known/ Suspected VRSA, History Other Infectious Disease, Traveled Outside the [place] in Last 30 Days - Family History Known Family History: Negative: Cardiac Disease, Diabetes Family History: R & n/C - Social History Alcohol Use: Weekly Hx Substance Use: No Substance Use Type: Reports: None Hx Tobacco Use: No Smoking Status (MU): Light Every Day Tobacco Smoker Type: Cigarettes Amount Used/How Often: 1/2 pack/ day Have You Smoked in the Last Year: Yes Review of Systems Negative: Fever Skin: Other - pos - swelling of left thumb, paronychia All Other Systems Reviewed And Are Negative: Yes Physical Exam - Summary Physical Exam Summary: General: Well appearing, no distress HEENT: PERRL Cardiovascular: Skin is well perfused Pulmonary: No respiratory distress, no tachypnea Abdomen: Non-distended Skin: Warm, pink, dry, paronychia on left thumb MSK: No edema Psych: Normal affect Neuro: A&Ox3 Triage Information Reviewed: Yes Vital Signs On Initial Exam: Initial Vitals Temp Pulse Resp BP Pulse Ox 98.4 F 91 16 137/83 98 03/10/19 11:54 03/10/19 11:54 03/10/19 11:54 03/10/19 11:54 03/10/19 11:54 Vital Signs Reviewed: Yes Procedures - Procedure Summary Procedure Summary: L paronychia. 1% lidocaine used for digital block. Single incision with purulent drainage. Patient tolerated well - Sedation Patient Received Moderate/Deep Sedation with Procedure: No - Incision and Drainage Left Finger Site: Left thumb Anesthesia: Lidocaine - 1% Diagnostics - Vital Signs Vital Signs Temp Pulse Resp BP Pulse Ox 03/10/19 11:54 98.4 F 91 16 137/83 98 - Laboratory Lab Statement: Any lab studies that have been ordered have been reviewed, and results considered in the medical decision making process. Course/Dx - Course Course Of Treatment: 29-year-old male with left thumb paronychia. Paronychia drained, patient has bactroban cream. - Diagnoses Provider Diagnoses: Paronychia Discharge ED - Sign-Out/Discharge Documenting (check all that apply): Patient Departure - discharge - Discharge Plan Condition: Stable Disposition: HOME Patient Education Materials: Paronychia (ED) Referrals: Duke Fernandez MD [Primary Care Provider] - 3 Days Additional Instructions: Please use warm soaks. Avoid biting nails. Return for worsening pain or redness. You can continue your antibiotic cream - Billing Disposition and Condition Condition: STABLE Disposition: Home - Attestation Statements Document Initiated by Scribe: Yes Documenting Scribe: Freddy Almonte Provider For Whom Scribe is Documenting (Include Credential): Domonique Matt Scribe Attestation: IFreddy, scribed for Mailen [place]. [place] on 03/10/19 at 1325. Scribe Documentation Reviewed: Yes Provider Attestation: The documentation as recorded by the [email or web address] accurately reflects the service I personally performed and the decisions made by Domonique bourne Status of Scribe Document: Viewed
[2019-03-10 13:17] VITALS: BP 118/69
== END 2019-03-10 13:12 | disposition home or self-care (01) ==
LOC: ED 11:51
DX: L03.012 Cellulitis of left finger (principal); Z88.1 Allergy status to other antibiotic agents; F17.210 Nicotine dependence, cigarettes, uncomplicated
CPT/HCPCS: 10060; 99282